=== PATIENT | female | born 1940 | race Caucasian/White ===

== ENCOUNTER 2023-10-08 15:45 | Emergency (ER) | payer OTHER, MEDICARE, SELFPAY ==
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
[2023-10-08 15:54] VITALS: BP 140/80; BP 159/68; PULSE 69; PULSE 75; RESP 18; TEMP 36.2; O2SAT 96; O2SAT 98; BMI 32.1
--- NOTE | 2023-10-08 16:13 | ECG_ITS ---
Test Reason : CHEST PAIN Blood Pressure : / mmHG Vent. Rate : 082 BPM Atrial Rate : 074 BPM P-R Int : 332 ms QRS Dur : 096 ms QT Int : 406 ms P-R-T Axes : 072 047 041 degrees QTc Int : 474 ms Poor data quality Sinus rhythm with 1st degree A-V block Cannot comment on ST abnormality Abnormal ECG No previous ECGs available Repeat EKG Referred By: Martha Nice Electronically Signed By:MIREYA HUNT MD
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
[2023-10-08 16:22] VITALS: BP 147/52; PULSE 73; RESP 18; TEMP 36.6; O2SAT 96
[2023-10-08 16:27] LABS: MANUAL DIFF FLAG NO
[2023-10-08 16:32] LABS: Basophils Absolute Auto 0.1 X10*3/uL (0.0-0.2); Basophils Percent Auto 0.6 % (0-2); Eosinophils Absolute Auto 0.2 X10*3/uL (0.0-0.4); Eosinophils Percent Auto 1.7 % (0-4); Hematocrit 40.1 % (37.0-47.0); Hemoglobin 13.7 g/dl (12.0-16.0); Imm Gran Abs Auto 0.07 X10*3/uL (0.00-0.03); Imm Gran Pct Auto 0.6 % (0.0-0.4); Lymphocytes Absolute Auto 2.7 X10*3/uL (1.2-4.9); Lymphocytes Percent Auto 23.6 % (20-40); Mean Corpuscular HGB Conc 34.2 g/dl (31.0-35.0); Mean Corpuscular Hemoglobin 33.3 pg (27.0-33.0); Mean Corpuscular Volume 97.3 fL (80.0-98.0); Mean Platelet Volume 11.7 fL (9.4-12.3); Monocytes Absolute Auto 0.9 X10*3/uL (0.1-1.2); Monocytes Percent Auto 7.6 % (2-11); Neutrophils Absolute Auto 7.6 x10*3/uL (2.0-8.3); Neutrophils Percent Auto 65.9 % (45-73); Platelet Count 181 X10*3/uL (160-400); Red Blood Count 4.12 X10*6/uL (4.20-5.50); Red Cell Distribution Width 12.5 % (11.0-16.0); White Blood Count 11.5 X10*3/uL (4.8-10.8)
[2023-10-08 16:50] LABS: Alanine Aminotransferase 213 U/L (0-31); Albumin Level 4.1 g/dL (3.5-5.0); Alkaline Phosphatase 68 U/L (39-117); Anion Gap 20 (12-20); Aspartate Amino Transferase 209 U/L (5-31); Bilirubin Direct 0.1 mg/dL (0.0-0.5); Bilirubin Total 0.5 mg/dL (0.0-1.0); Blood Urea Nitrogen 24 mg/dL (9-16); Calcium 10.5 mg/dL (8.4-10.2); Carbon Dioxide 24 mmol/L (22-29); Chloride 103 mmol/L (96-108); Creatinine Clr Calc Pharmacy 33.4; Estimated Glomerular Filt Rate 42; Glucose Random 180 mg/dL (60-115); Magnesium 2.2 mg/dL (1.6-2.6); Potassium 4.8 mmol/L (3.3-5.1); Sodium 142 mmol/L (135-145); Total Protein 7.2 g/dL (6.5-8.0)
--- NOTE | 2023-10-08 16:55 | PC.NURSE ---
pt transferred to ED12, report given to MARY KATE Pineda.
[2023-10-08] MEDS: iohexoL 350 MG/ML 100 ML INFUS..BTL IV (18:22)
[2023-10-08 18:37] VITALS: BP 162/77; PULSE 81; RESP 20; TEMP 36.8
[2023-10-08] MEDS: Morphine Sulfate 4 MG/ML CARTRIDGE IVPUSH (21:27)
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
[2023-10-08 22:58] LABS: Appearance Urine Cloudy; Color Urine Yellow; Glucose Urine UA 250 mg/dL (Negative); Leukocyte Esterase Urine Small (1+) (Negative); Nitrite Urine Negative (Negative); Specific Gravity - Urine 1.025 (1.005-1.025); UMIC TRIGGER UACC YES; Urine Blood Moderate (2+) (Negative); Urine Ketones Trace mg/dL (Negative); Urine Protein Negative (Neg-Trace)
[2023-10-08 23:00] LABS: Bacteria Urine 4+ (None Seen); Hyaline Casts Urine 0-2 /LPF (0-2); Squamous Epithelial Cell Urine 0-2 /HPF (0-2); UACC Culture Trigger YES
[2023-10-09 00:20] VITALS: BP 123/45; PULSE 70; RESP 15; O2SAT 97
[2023-10-09 05:34] VITALS: BP 126/71; PULSE 73; RESP 16; O2SAT 98
[2023-10-09] MEDS: Morphine Sulfate 4 MG/ML CARTRIDGE IVPUSH (06:23)
--- NOTE | 2023-10-09 06:23 | PC.NURSE ---
unable to scan morphine due to computer difficulties.
[2023-10-09 07:24] VITALS: BP 126/71; PULSE 73; O2SAT 98
[2023-10-09 08:26] VITALS: BP 132/48; PULSE 64; RESP 14; TEMP 36.8; O2SAT 96
--- NOTE | 2023-10-09 10:24 | PHA.MEDREC ---
Addendum entered by Essence Hester [facility] 10/09/23 10:38: reviewed Original Note: Pharmacy Consult ? Medication Reconciliation Pharmacy has completed the medication reconciliation. Confirmed medications with patient and help of daughter at bedside. Patient confirmed she is still taking a Vitamin D3 50,000 unit tablet once weekly, she said she takes it Sundays and she did it this past Tuesday 10/03.
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
[2023-10-09] MEDS: Morphine Sulfate Immed Release 15 MG TABLET PO ×2 (11:56→17:35)
[2023-10-09 12:46] LABS: COVID-19 Test Negative (Negative); IDNOW Serial# 58CA691E
[2023-10-09] MEDS: Gabapentin 300 MG CAPSULE 900 MG PO (12:46)
[2023-10-09] MEDS: Loratadine 10 MG TABLET PO (12:46)
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
--- NOTE | 2023-10-09 15:25 | MHC.CM.ED ---
Patient can d/c to [facility] at 6pm today. [facility] booked. Med nec with chart. Patient, son Julissa Christianson RN and Abena MEDEL aware. Continue to monitor for d/c needs.
--- NOTE | 2023-10-09 17:28 | MHC.CM.ED ---
Recieved telephone call from [facility] requesting HCP and patient's car insurance information, claim number and machine adjuster leader case trim. Pt has [employer] insurance for her car. Per her daughter, Lynsey, they have not yet spoken with the car insurance company, as her mother is still in the ED. Lynsey will call the insurance company on Thursday. HCP and car insurance company faxed to [facility] at [phone]. BLS booked for transport at 6pm tonight. Pt and daughter aware. Facility aware.
[2023-10-09 17:31] VITALS: BP 157/67; PULSE 67; RESP 20; TEMP 36.6; O2SAT 97
[2023-10-09] MEDS: Acetaminophen 325 MG TABLET 975 MG PO (17:36)
[2023-10-09 19:55] VITALS: BP 157/67; PULSE 67; RESP 20; TEMP 36.6; O2SAT 97
== END 2023-10-09 19:57 | disposition skilled nursing facility (03) ==
PROVIDERS: Physician Assistant; Physician Assistant Medical; Emergency Provider Student in an Organized Health Care Education/Training Program; PCP Family Medicine
DX: S30.1XXA Contusion of abdominal wall, initial encounter (principal); V43.52XA Car driver injured in collision with other type car in traffic accident, initial encounter; W22.10XA Striking against or struck by unspecified automobile airbag, initial encounter; Y93.9 Activity, unspecified; Y92.410 Unspecified street and highway as the place of occurrence of the external cause; Y99.9 Unspecified external cause status; N39.0 Urinary tract infection, site not specified; B96.89 Other specified bacterial agents as the cause of diseases classified elsewhere; E78.5 Hyperlipidemia, unspecified; G62.9 Polyneuropathy, unspecified; Z96.651 Presence of right artificial knee joint
CPT/HCPCS: 36415; 70450; 71260; 72125; 73590; 74177; 80048; 80076; 81001; 83735; 85025; 87086; 87088; 87186; 87635; 93005; 96374; 96376; 97163; 99285; J2270; Q9967

== ENCOUNTER → 2023-10-08 16:13 | Outpatient (BNV) | payer MEDICARE, SELFPAY | PROVIDERS: Emergency Provider Student in an Organized Health Care Education/Training Program; PCP Family Medicine; Visit Provider Internal Medicine Cardiovascular Disease | DX: R94.31 Abnormal electrocardiogram [ECG] [EKG] (principal) | CPT/HCPCS: 93010 ==